=== PATIENT | male | born 1980 | race Caucasian/White ===

== ENCOUNTER 2023-10-05 15:23 | Outpatient (CLI) | payer OTHER, SELFPAY | END 2023-10-05 15:24 | disposition home or self-care (01) | LOC: LKVREF 15:30 | PROVIDERS: PCP Family Medicine; Visit Provider Family Medicine | DX: R10.9 Unspecified abdominal pain (principal) | CPT/HCPCS: 80053 ==

== ENCOUNTER 2024-02-05 09:09 | Outpatient (CLI) | payer OTHER, SELFPAY | END 2024-02-05 09:10 | disposition home or self-care (01) | PROVIDERS: PCP Family Medicine; Visit Provider Family Medicine | DX: Z00.00 Encounter for general adult medical examination without abnormal findings (principal); R53.83 Other fatigue; E78.00 Pure hypercholesterolemia, unspecified; F10.10 Alcohol abuse, uncomplicated; F32.A Depression, unspecified | CPT/HCPCS: 80053; 80061; 82607; 84443 ==

== ENCOUNTER 2025-04-28 14:40 | Outpatient (CLI) | payer OTHER, SELFPAY | END 2025-04-28 14:41 | disposition home or self-care (01) | LOC: LKVREF 14:41 | PROVIDERS: PCP Family Medicine; Visit Provider Family Medicine | DX: E78.00 Pure hypercholesterolemia, unspecified (principal); M54.9 Dorsalgia, unspecified; F10.10 Alcohol abuse, uncomplicated; F32.A Depression, unspecified; G62.9 Polyneuropathy, unspecified; R53.83 Other fatigue | CPT/HCPCS: 80053; 80061; 82306; 82607; 84443 ==